=== PATIENT | male | born 1955 | race Two or more races ===

== ENCOUNTER 2022-02-19 16:30 | Inpatient (IN) | payer BC, OTHER ==
[2022-02-19] MEDS ORDERED: ACETAMINOPHEN 1000 MG/100 ML BAG IVPB ONE (17:11)
[2022-02-19] MEDS ORDERED: FAMOTIDINE 20 MG/50 ML IVPB 20 MG/50 ML MG IVPB ONE ×2 (17:11→17:35)
[2022-02-19] MEDS ORDERED: ONDANSETRON 4 MG/2 ML VIAL IVPUSH ONE (17:11)
[2022-02-19] MEDS ORDERED: MAG HYDROX/AL HYDROX/SIMETH 30 ML UNIT-DOSE CUP PO ONE (17:11)
[2022-02-19] MEDS ORDERED: morphine CARPU-JECT 4 MG/1 ML DISP.SYRIN IVPUSH ONE (17:16)
[2022-02-19] MEDS ORDERED: morphine SULFATE 4 MG/ML VIAL ONE (17:33)
[2022-02-19] MEDS ORDERED: ONDANSETRON 4 MG/2 ML VIAL ONE (17:34)
[2022-02-19] MEDS ORDERED: MAG HYDROX/AL HYDROX/SIMETH 30 ML UNIT-DOSE CUP ONE (17:34)
[2022-02-19] MEDS ORDERED: ACETAMINOPHEN INJECTION 100 ML IVPB ONE ×2 (17:34→22:23)
[2022-02-19 18:04] LABS: BASO % 0.7 % (0-2.0); EOS % 4.8 % (0-4.5); HEMATOCRIT 43.7 % (35.4-49); HEMOGLOBIN 14.8 GM/dL (11.7-16.9); LYMPH % 18.8 % (8-40); MCH 26.9 pg (25.7-33.7); MCHC 33.8 g/dl (32.0-35.9); MEAN CELL VOLUME 79.7 fl (80-96); MEAN PLT VOLUME 7.9 fl (7.5-11.1); MONO % 5.8 % (3.8-10.2); NEUT % 69.9 % (42.8-82.8); PLATELET COUNT 245 10^3/uL (134-434); RBC 5.49 M/mm3 (4.00-5.60); RDW 15.4 % (11.9-15.9); WHITE BLOOD COUNT 7.9 K/mm3 (4.0-10.0)
[2022-02-19 18:33] LABS: ALBUMIN 4.2 g/dl (3.4-5.0); CALCIUM 9.9 mg/dL (8.5-10.1)
[2022-02-19 18:35] LABS: BLOOD UREA NITROGEN 23.2 mg/dL (7-18)
[2022-02-19 18:37] LABS: CREATININE 1.5 mg/dL (0.55-1.3)
[2022-02-19 18:39] LABS: BILIRUBIN,TOTAL 0.4 mg/dL (0.2-1); TOT PROT 7.4 g/dl (6.4-8.2)
[2022-02-19] MEDS ORDERED: SODIUM CHLORIDE 0.9% 500 ML INFUS.BAG IV ONE (18:47)
[2022-02-19] MEDS ORDERED: LIDOCAINE VISCOUS 2% ORAL/TOP 100 ML BOTTLE MM ONE (20:18)
[2022-02-19] MEDS ORDERED: LIDOCAINE HCL 2% JELLY 10 ML CARTRIDGE ONE (20:23)
[2022-02-19] MEDS ORDERED: LACTATED RINGERS SOLUTION 1,000 ML/1,000 ML INFUS.BAG IV SCH (21:00)
[2022-02-19 21:21] LABS: PH,URINE 5.5 (5.0-8.0); URINE APPEARANCE CLEAR; URINE BILIRUBIN NEGATIVE (NEGATIVE); URINE COLOR YELLOW; URINE GLUCOSE (UA) 1+ (NEGATIVE); URINE KETONE NEGATIVE (NEGATIVE); URINE LEUK ESTERASE NEGATIVE (NEGATIVE); URINE NITRITE NEGATIVE (NEGATIVE); URINE PROTEIN NEGATIVE (NEGATIVE)
[2022-02-19] MEDS: DEXTROSE 5%-LACTATED RINGERS 1,000 ML IV SCH (21:39)
[2022-02-19] MEDS ORDERED: HEPARIN NA (PORCINE) 5,000 UNITS/ML 1ML VIAL SQ SCH (22:00)
[2022-02-19] MEDS ORDERED: HEPARIN NA (PORCINE) 5,000 UNITS/ML 1ML VIAL ONE (22:17)
[2022-02-19] MEDS: INSULIN SLIDING SCALE (NOVOLOG) 1 VIAL SQ SCH (22:22)
[2022-02-19] MEDS ORDERED: PHENOL 177 ML SPRAY BOTTLE MM PRN (22:39)
[2022-02-19] MEDS ORDERED: ONDANSETRON 4 MG/2 ML VIAL IVPUSH PRN (23:30)
[2022-02-20] MEDS ORDERED: ACETAMINOPHEN 1000 MG/100 ML BAG IVPB PRN
[2022-02-20 04:24] VITALS: BMI 25.6
[2022-02-20] MEDS: INSULIN SLIDING SCALE (NOVOLOG) 1 VIAL SQ SCH ×5 (05:51→21:06)
[2022-02-20] MEDS ORDERED: METOCLOPRAMIDE HCL INJECTION 10 MG/2 ML VIAL IVPUSH PRN (06:35)
[2022-02-20] MEDS: LEVOTHYROXINE NA 25 MCG TABLET (FP) PO SCH (07:24)
[2022-02-20] MEDS: METOCLOPRAMIDE HCL INJECTION 10 MG/2 ML VIAL IVPUSH SCH ×2 (10:03→17:45)
[2022-02-20] MEDS: PANTOPRAZOLE SODIUM 40 MG VIAL IVPUSH SCH (10:03)
[2022-02-20] MEDS: DEXTROSE 5%-LACTATED RINGERS 1,000 ML IV SCH (10:11)
[2022-02-20] MEDS: LACTATED RINGERS SOLUTION 1,000 ML IV SCH (11:30)
[2022-02-20 11:32] LABS: HEMATOCRIT 36.8 % (35.4-49); HEMOGLOBIN 12.2 GM/dL (11.7-16.9); MCHC 33.3 g/dl (32.0-35.9); PLATELET COUNT 197 10^3/uL (134-434); RBC 4.54 M/mm3 (4.00-5.60); RDW 15.1 % (11.9-15.9); WHITE BLOOD COUNT 3.5 K/mm3 (4.0-10.0)
[2022-02-20 11:37] LABS: INR 1.11 (0.83-1.09); PROTHROMBIN TIME (PATIENT) 12.8 SEC (9.7-13.0)
[2022-02-20 11:40] LABS: ACTIVATED PTT 31.1 SECONDS (25.2-36.5)
[2022-02-20 12:00] LABS: BLOOD UREA NITROGEN 23.3 mg/dL (7-18); CALCIUM 8.5 mg/dL (8.5-10.1)
[2022-02-20 12:04] LABS: CREATININE 1.4 mg/dL (0.55-1.3)
[2022-02-21] MEDS ORDERED: ACETAMINOPHEN 325 MG TABLET (FP) PO PRN
[2022-02-21] MEDS: METOCLOPRAMIDE HCL INJECTION 10 MG/2 ML VIAL IVPUSH SCH ×4 (00:05→23:54)
[2022-02-21] MEDS: INSULIN SLIDING SCALE (NOVOLOG) 1 VIAL SQ SCH ×6 (01:30→21:31)
[2022-02-21] MEDS: LEVOTHYROXINE NA 25 MCG TABLET (FP) PO SCH (06:04)
[2022-02-21 08:50] LABS: CALCIUM 8.3 mg/dL (8.5-10.1)
[2022-02-21 08:54] LABS: CREATININE 1.2 mg/dL (0.55-1.3)
[2022-02-21] MEDS: PANTOPRAZOLE SODIUM 40 MG VIAL IVPUSH SCH (09:08)
[2022-02-21] MEDS: LACTATED RINGERS SOLUTION 1,000 ML IV SCH (10:55)
[2022-02-21] MEDS: INSULIN (LEVEMIR) 100 UNITS/ML UNITS SQ SCH (21:29)
[2022-02-22] MEDS: INSULIN SLIDING SCALE (NOVOLOG) 1 VIAL SQ SCH ×4 (01:16→16:21)
[2022-02-22] MEDS: LEVOTHYROXINE NA 25 MCG TABLET (FP) PO SCH (06:07)
[2022-02-22] MEDS: INSULIN (LEVEMIR) 100 UNITS/ML UNITS SQ SCH (06:07)
[2022-02-22] MEDS: PANTOPRAZOLE SODIUM 40 MG VIAL IVPUSH SCH (09:53)
[2022-02-22] MEDS: METOCLOPRAMIDE HCL INJECTION 10 MG/2 ML VIAL IVPUSH SCH ×2 (09:53→16:44)
[2022-02-22 10:41] VITALS: PULSE 59; RESP 18
[2022-02-22] MEDS: LACTATED RINGERS SOLUTION 1,000 ML IV SCH (12:46)
[2022-02-22 18:24] VITALS: BP 130/70; TEMP 98.9
== END 2022-02-22 18:59 | disposition home or self-care (01) | DRG 390 ==
LOC: JER 16:30 → JERBED 20:21 → J8W 02-20 01:54
PROVIDERS: ADMIT Internal Medicine; ATTEND Family Medicine
DX: K56.609 Unspecified intestinal obstruction, unspecified as to partial versus complete obstruction (principal); I25.10 Atherosclerotic heart disease of native coronary artery without angina pectoris; E11.9 Type 2 diabetes mellitus without complications; E78.5 Hyperlipidemia, unspecified; I10 Essential (primary) hypertension; E03.9 Hypothyroidism, unspecified; Z95.1 Presence of aortocoronary bypass graft
CPT/HCPCS: 36415; 71045-TC-FY; 71275-TC; 74019-TC-FY; 74174-TC; 74177-TC; 80048; 80053; 81003; 82962; 83690; 83735; 84443; 84484; 85025; 85610; 85730; 86850; 86900; 86901; 93005; 93010; 93975; 99285-25; C9803-CS; J1644; Q9967; U0003; U0005